=== PATIENT | female | born 1985 | race Hispanic/Latino ===

== ENCOUNTER 2017-11-15 10:15 | Emergency (ER) | payer OTHER ==
[2017-11-15 10:26] VITALS: BMI 18.8
--- NOTE | 2017-11-15 10:47 | ED PDOC ---
HPI: Female Pain Time Seen by Provider: 11/15/17 10:24 Chief Complaint (Nursing): Female Genitourinary History Per: Patient Onset/Duration Of Symptoms: Days (2) Current Symptoms Are (Timing): Still Present Severity: Mild Pain Scale Rating Of: 0 Quality Of Discomfort: Unable To Describe Associated Symptoms: denies: Nausea, Vomiting, Diarrhea, Urinary Symptoms Additional Complaint(s): Vaginal bleeding since yesterday. Denies lower abd pain. Approx 12 weeks gestation. Abnormal Vaginal Bleeding: Yes Past Medical History Vital Signs: Last Vital Signs Temp 98.7 F 11/15/17 10:25 Pulse 93 H 11/15/17 10:25 Resp 16 11/15/17 10:25 BP 108/71 11/15/17 10:25 Pulse Ox 98 11/15/17 10:25 - Medical History PMH: No Chronic Diseases - Family History Family History: States: Unknown Family Hx - Allergies Allergies/Adverse Reactions: Allergies Allergy/AdvReac Type Severity Reaction Status Date / Time No Known Allergies Allergy Verified 11/15/17 10:31 Review of Systems Constitutional: Negative for: Fever Gastrointestinal: Negative for: Abdominal Pain Genitourinary Female: Positive for: Vaginal Bleeding Musculoskeletal: Negative for: Back Pain Physical Exam - Physical Exam Appears: Positive for: Non-toxic, No Acute Distress Skin: Positive for: Normal Color, Warm, DRY Gastrointestinal/Abdominal: Positive for: Bowel Sounds, Soft. Negative for: Tenderness Pelvic Exam: Positive for: External Exam Normal, Blood (Small amount of blood in vault, cervix closed). Negative for: Tender Adnexa, Tender Uterus - Laboratory Results Result Diagrams: 11/15/17 11:39 - ECG O2 Sat by Pulse Oximetry: 98 Disposition - Clinical Impression Clinical Impression: Threatened miscarriage - Patient ED Disposition Is Patient to be Admitted: No Counseled Patient/Family Regarding: Studies Performed, Diagnosis, Need For Followup - Disposition [facility] Disposition: Routine/Home Disposition Time: 12:54 Condition: FAIR Instructions: Threatened Miscarriage Forms: [facility] (Beninese) Print Language: PERSIAN
[2017-11-15 11:48] LABS: BASO % 0.3 % (0.0-2.0); EOS % 0.7 % (0.0-4.0); HEMOGLOBIN 11.9 g/dL (12.0-16.0); LYMPH # 0.8 K/uL (1.0-4.3); LYMPH % 17.6 % (20.0-40.0); MEAN CELL VOLUME 91.4 fl (81.0-99.0); MEAN CORPUSCULAR HEMOGLOBIN 31.2 pg (27.0-31.0); MEAN CORPUSCULAR HGB CONC 34.1 g/dL (33.0-37.0); MEAN PLATELET VOLUME 9.4 fl (7.2-11.7); MONO # 0.3 K/uL (0.0-0.8); MONO % 6.9 % (0.0-10.0); NEUT # 3.5 K/uL (1.8-7.0); NEUT % 74.5 % (50.0-75.0); RBC 3.81 Mil/uL (3.80-5.20); RED CELL DISTRIBUTION WIDTH 12.8 % (11.5-14.5); WHITE BLOOD COUNT 4.7 K/uL (4.8-10.8)
--- NOTE | 2017-11-15 13:10 | US ---
PROCEDURE: OB Pelvic Ultrasound HISTORY: r/o ectopic LMP: 08/29/2017 suggesting gestational age of 11 weeks 1 day. COMPARISON: None available. FINDINGS: UTERUS: A gestational sac is identified within the endometrial cavity with yolk sac not clearly identified. pole is identified as well as amniotic membrane. Mean gestational sac size is 7.0 cm. Mean crown-rump length measurement is 5.3 cm corresponding to ultrasonic age 12 weeks 0 days which is concordant with LMP derived dates. Decidual reaction remarkable for hypoechoic changes at the inferior margins post inferiorly, suggestive of probable subacute or chronic subchorionic hematoma. Clinically correlate. cardiac activity is recorded 164 beats per minute. The uterus is anteverted measuring 14.1 x 8.49.5 serve of multiple fibroids identified. A sub serosal fibroid measures 3.4 x 2.0 cm at the upper posterior fundus. At the lower uterine segment anteriorly is a sub serosal fibroid measuring 3.5 by is 3.9 cm. CERVIX: Measures 5.0 cm. Long and closed. No cervical abnormality seen. RIGHT OVARY: Not identified. No suspicious right adnexal findings are demonstrated. LEFT OVARY: Measures 4.1 x 2.9 x 3.38 cm. No solid mass. Normal flow. Delete FREE FLUID: None. OTHER FINDINGS: None. IMPRESSION: A single viable intrauterine gestation is identified with an average ultrasonic age of 12 weeks 0 days, concordant with LMP derived dates appears small subchorionic late subacute or early chronic hematoma is identified. Clinical correlation is advised for follow ultrasonography is recommended in 1 week. .
[2017-11-15 15:32] VITALS: BP 99/67; PULSE 60; RESP 14; TEMP 98; O2SAT 100
== END 2017-11-15 15:41 | disposition home or self-care (01) ==
LOC: H.ER 10:15
DX: O20.0 Threatened abortion (principal); Z36.9 Encounter for antenatal screening, unspecified; Z3A.12 12 weeks gestation of pregnancy
CPT/HCPCS: 76815; 84702; 85025; 86850; 86900; 96372; 99285; J2792